=== PATIENT | male | born 1980 | race Caucasian/White ===

== ENCOUNTER 2017-03-05 09:54 | Emergency (ER) | payer MEDICAID ==
[~2017-03-05] VITALS: Ht 165.1 cm; Wt 87.0 kg
[~2017-03-05 09:54] MED LIST: BACITUD TOP; CEPH-443 PO
[2017-03-05 10:02] VITALS: Ht 165.1 cm; Wt 87.0 kg
[2017-03-05] MEDS ORDERED: ONDANSETRON (ODT) 4 MG TAB ODT STA (10:48)
[2017-03-05] MEDS ORDERED: IBUP-1542 PO (10:49)
[2017-03-05] MEDS ORDERED: ONDA4TAB14 PO (10:49)
[2017-03-05] MEDS ORDERED: IBUPROFEN 800 MG TAB PO ONE (11:00)
--- NOTE | 2017-03-05 13:35 | ERD ---
ER Documentation Chief Complaint Date/Time DATE: 03/05/17 TIME: 13:33 Chief Complaint VOMITTING , GENERALIZED ABDOMINAL PAIN X 2 DAYS HPI Patient is a 36-year-old male with no medical problems who presents with vomiting. The patient said that he started yesterday afternoon with vomiting. He had subjective fever but did not take his temperature. He has upper abdominal pain as well. He has diarrhea. He tried Pepto-Bismol. His daughter is sick with vomiting as well. Upon review of old medical records this the patient's first visit to the emergency department since 2014. He does not currently have a primary doctor. ROS All systems reviewed and are negative except as per history of present illness. Medications Home Meds Active Scripts Ibuprofen* (Motrin*) 600 Mg Tab, 600 MG PO Q8, #30 TAB Prov:VILLA FAIRCHILD MD 03/05/17 Ondansetron (Ondansetron Odt) 4 Mg Tab.rapdis, 4 MG PO Q6H Y for NAUSEA AND/OR VOMITING, #30 TAB Prov:VILLA FAIRCHILD MD 03/05/17 Bacitracin* (Bacitracin Oint (UD)*) 1 Applic Oint, 1 APPLIC TOP ONCE, #3.5 G APPLY TO Prov:ALVAREZ GALLEGOS 04/22/15 Cephalexin* (Keflex*) 500 Mg Capsule, 500 MG PO QID for 7 Days, CAP Prov:ALVAREZ GALLEGOS 04/22/15 Allergies Allergies: Coded Allergies: No Known Allergy (Unverified , 03/05/17) PMhx/Soc Medical and Surgical Hx: pt denies Medical Hx, pt denies Surgical Hx Hx Alcohol Use: No Hx Substance Use: No Hx Tobacco Use: No Smoking Status: Never smoker FmHx Family History: diabetes Physical Exam Vitals Vital Signs Date Time Temp Pulse Resp B/P Pulse Ox O2 Delivery O2 Flow Rate FiO2 03/05/17 10:02 98.0 97 19 128/75 94 Physical Exam Const: No acute distress Head: Atraumatic Eyes: Normal Conjunctiva ENT: Normal External Ears, Nose and Mouth. Neck: Full range of motion..~ No meningismus. Resp: Clear to auscultation bilaterally Cardio: Regular rate and rhythm, no murmurs Abd: Soft, mild epigastric tenderness to palpation without rebound or guarding Skin: No petechiae or rashes Back: No midline or flank tenderness Ext: No cyanosis, or edema Neur: Awake and alert Psych: Normal Mood and Affect Results 24 hrs Current Medications Medications (Trade) Dose Ordered Sig/Celine Route PRN Reason Start Time Stop Time Status Last Admin Dose Admin Ondansetron HCl (Zofran Odt) 4 mg ONCE STAT ODT 03/05/17 10:48 03/05/17 10:49 DC 03/05/17 11:13 Ibuprofen (Motrin) 800 mg ONCE ONCE PO 03/05/17 11:00 03/05/17 11:01 DC 03/05/17 11:13 Procedures/MDM Smoking Cessation Therapy: Pt. was lectured for greater than 3 minutes on the health risks of continued smoking and the benefits of cessation. Patient is a 36-year-old male presents with vomiting and diarrhea. He had subjective fever and upper epigastric abdominal pain. The patient is well- appearing and well-hydrated. I believe the patient likely has a viral illness. The patient can take ibuprofen and Zofran as needed for symptom medical relief. At this point I doubt appendicitis, cholecystitis, pancreatitis, or bowel obstruction. I believe outpatient management is appropriate. However the patient will need close follow-up with a local clinics within 24 hours for reevaluation as he does not currently have a primary doctor. Departure Diagnosis: Primary Impression: Abdominal pain Abdominal location: epigastric Qualified Code: R10.13 - Epigastric pain Additional Impression: Vomiting Vomiting type: unspecified Vomiting Intractability: non-intractable Nausea presence: with nausea Qualified Code: R11.2 - Non-intractable vomiting with nausea, unspecified vomiting type Condition: Fair Patient Instructions: Abdominal Pain, Vomiting (6Y-Adult) [facility] Usted se jimenez hecho un examen mdico de control que le indica que no est en álvaro condicin que requiera tratamiento urgente en el Departamento de Emergencia. Un estudio ms profundo y el tratamiento de mckeon condicin pueden esperar sin ningn riesgo hasta que usted sea atendida/o en el consultorio de mckeon mdico o álvaro cl josé miguel. Es responsabilidad suya arreglar álvaro harry para el seguimiento del akila. MANEJO DE CONDICIONES NO URGENTES EN EL FUTURO 1) Si usted tiene un mdico de atencin primaria: Usted debera llamar a mckeon mdico de atencin primaria antes de venir al departamento de emergencia. Despus de las horas de consultorio, mckeon doctor o mckeon asociado/a est disponible por telfono. El mdico o enfermero de bao en el servicio telefnico puede asesorarle por mesha medio para atender el problema, o akila contrario se puede programar álvaro harry. 2) Si usted no tiene un mdico de atencin primaria: Llame al mdico o clnica de referencia que aparece abajo damari las horas de consultorio para hacer álvaro harry para que le vean. CLINICAS: [place] [phone] [facility] [phone] [facility] [phone] [facility] [place] [phone] [facility] [place] [phone] [place] [phone] Additional Instructions: Visite a mckeon mdico maana para un EXAMEN.Regrese a estas instalaciones si no se mejora le esperbamos o le le dijimos. VILLA FAIRCHILD MD Mar 05, 2017 13:35
== END 2017-03-05 11:19 | disposition home or self-care (01) ==
LOC: FTE 09:54
DX: R10.13 Epigastric pain (principal)
CPT/HCPCS: Z7502; Z7610; 99283